=== PATIENT | female | born 1980 | race Caucasian/White ===

== ENCOUNTER 2020-01-19 05:58 | Emergency (ER) | payer OTHER, SELFPAY ==
[2020-01-19 06:05] VITALS: BP 134/91; PULSE 68; RESP 18; TEMP 37.1; O2SAT 98
--- NOTE | 2020-01-19 07:02 | ED.FEMALEGU ---
HPI - Female Genitourinary General Chief complaint: Vaginal Bleeding Stated complaint: worsening period Time Seen by Provider: 01/19/20 06:22 Source: patient Mode of arrival: ambulatory Limitations: no limitations History of Present Illness HPI Narrative: Patient is a 39-year-old female who presents to the emergency department with complaint of vaginal bleeding. Patient has history of PCOS. She reports starting her menstrual period approximately 1 month ago. Her previous menstrual period had been mid November. Patient states her menstrual period in November was very light. She states her menstrual period became much heavier at approximately 9 PM last night and she has been going through a couple of pads an hour. She reports passing clots. Her RADAR TECHNICIAN is in [place]. elicited complaint: vaginal bleeding Pertinent past history: other (PCOS) Onset (ago): week(s) Quality of pain: cramping Vaginal bleeding: heavy Patient : No Related Data Allergies Allergy/AdvReac Type Severity Reaction Status Date / Time No Known Allergies Allergy Verified 01/19/20 06:12 Review of Systems Review of Systems: All systems reviewed & are unremarkable except as noted in HPI and below Genitourinary: Genitourinary: Reports abnormal menses and Reports abnormal vaginal bleeding PMF Past Medical History Medical History (Updated 01/19/20 @ 08:07 by Melisa Alexis MD) Anemia Depression History of migraine headaches IBS (irritable bowel syndrome) PCOS (polycystic ovarian syndrome) Social History Social History (Updated 01/19/20 @ 07:06 by Melisa Alexis MD) Smoking status: Never smoker Exam Const: General: cooperative, no acute distress and alert Nutritional Appearance: overweight Orientation/consciousness: patient oriented x3 Limitations: no limitations HENMT: Mouth: Yes lip normal and Yes moist mucous membranes Resp: Effort & Inspection: normal respiratory effort Auscultation: clear to auscultation bilaterally Cardio: Rate: regular rate Rhythm: regular rhythm GI: GI Palp: Yes Soft to palpation and No Tenderness to palpation present (GI) Auscultation: normal bowel sounds : Speculum Exam - Vagina: vaginal bleeding Speculum Exam - Cervix: normal appearance of the cervix and Cervical os closed Skin: General skin exam: normal color Neuro: General: patient oriented x3 Cognition (Neuro): normal cognition Speech: normal speech Extrem: General: normal to inspection, full ROM and no clubbing, cyanosis or edema Psych: Mental Status: mental status grossly normal Affect: normal affect Attitude: cooperative Course Course Emergency Course: Patient with high normal hemoglobin and normal vital signs. Patient does have modest amount of vaginal bleeding, but stable for further outpatient management at this time does not require any type of emergency intervention. Advised importance of following up with her RADAR TECHNICIAN for further care. Advised to call office today to discuss further management. Vital Signs Vital signs: Vital Signs Temperature 98.8 F 01/19/20 06:05 Pulse Rate 68 01/19/20 06:05 Respiratory Rate 18 01/19/20 06:05 Blood Pressure 134/91 H 01/19/20 06:05 Pulse Oximetry 98 01/19/20 06:05 Temperature 98.8 F 01/19/20 06:05 Pulse Rate 66 01/19/20 07:59 Respiratory Rate 18 01/19/20 07:59 Blood Pressure 162/73 H 01/19/20 07:59 Pulse Oximetry 99 01/19/20 07:59 MDM - Female Genitourinary Lab Data Attestation: I reviewed the patient's lab results. Result diagrams: 01/19/20 07:05 Labs: Lab Results 01/19/20 Range/Units 07:05 WBC 11.1 H (4.5-10.0) K/mm3 RBC 4.76 (4.2-5.4) M/mm3 Hgb 14.0 (12.0-15.0) g/dL Hct 43.5 (37.0-47.0) % MCV 91.4 (80-100) fl MCH 29.4 (26-34) pg MCHC 32.2 (32-36) g/dl RDW 13.0 (11.5-14.5) % Plt Count 343 (150-375) k/mm3 MPV 8.7 (7.4-10.4) fl Immature Gran % (Auto) 0.3 (0-0.5) % Neut
[2020-01-19 07:08] VITALS: BP 121/83; PULSE 63
[2020-01-19 07:10] VITALS: BP 113/77; BP 116/71; PULSE 66; PULSE 70
[2020-01-19 07:11] LABS: Basophils Absolute Auto 0.1 K/mm3 (0.0-0.1); Basophils Percent Auto 0.6 % (0.2-1.2); Eosinophils Absolute Auto 0.4 K/mm3 (0-0.3); Eosinophils Percent Auto 3.2 % (0-4.4); Hematocrit 43.5 % (37.0-47.0); Immature Granulocyte Absolute 0.03 K/mm3 (0.00-0.031); Immature Granulocyte Percent A 0.3 % (0-0.5); Lymphocytes Absolute Auto 4.78 K/mm3 (0.9-3.2); Lymphocytes Percent Auto 43.1 % (18.3-44.2); Mean Corpuscular HGB Conc 32.2 g/dl (32-36); Mean Corpuscular Hemoglobin 29.4 pg (26-34); Mean Corpuscular Volume 91.4 fl (80-100); Mean Platelet Volume 8.7 fl (7.4-10.4); Monocytes Absolute Auto 0.6 K/mm3 (0.1-0.6); Neutrophils Absolute Auto 5.3 K/mm3 (1.3-6.7); Neutrophils Percent Auto 47.8 % (45.5-73.1); Platelet Count Result 343 k/mm3 (150-375); Red Blood Count 4.76 M/mm3 (4.2-5.4); White Blood Count 11.1 K/mm3 (4.5-10.0)
[2020-01-19 07:59] VITALS: BP 162/73; PULSE 66; RESP 18; O2SAT 99
[2020-01-19 08:34] VITALS: BP 126/71
== END 2020-01-19 08:36 | disposition home or self-care (01) ==
PROVIDERS: Emergency Provider Emergency Medicine
DX: N92.1 Excessive and frequent menstruation with irregular cycle (principal); E28.2 Polycystic ovarian syndrome; K58.9 Irritable bowel syndrome, unspecified; Z86.2 Personal history of diseases of the blood and blood-forming organs and certain disorders involving the immune mechanism
CPT/HCPCS: 36415; 81025; 85025; 99283

== ENCOUNTER 2020-06-20 03:04 | Emergency (ER) | payer OTHER, SELFPAY ==
--- NOTE | ~2020-06-20 | CT_ITS ---
EXAMINATION: CTA chest PE protocol DATE: 06/20/2020 08:08 INDICATION: Shortness of breath and back pain TECHNIQUE: Computed tomography angiography (CTA) of the chest was performed with 100 mL Omnipaque-350 intravenous contrast timed to evaluate the pulmonary arteries. Coronal maximum intensity projection 3D-reconstructions were created by the technologist. The dose-length product (DLP) was 504.94 mGy-cm. Automated exposure control and iterative reconstruction technique were employed. COMPARISON: None. FINDINGS: The pulmonary arteries are moderately well-opacified. No pulmonary embolism is identified. There is mild dependent atelectasis. No focal airspace opacities are identified. There is no pleural effusion or pneumothorax. A right-sided aortic arch is noted. IMPRESSION: 1. No pulmonary embolism identified. Reviewed, dictated and finalized at location A.
--- NOTE | ~2020-06-20 | US_ITS ---
EXAMINATION: US pelvic complete w TV DATE: 06/20/2020 06:55 INDICATION: Vaginal bleeding and right flank pain, IUD placement on 06/11/2020 TECHNIQUE: Multiple transabdominal and endovaginal sonographic images of the pelvis were obtained. COMPARISON: 06/20/2020 FINDINGS: The uterus measures 8.6 x 6.1 x 4.3 cm. An IUD is in the uterus in expected position. There is a 1.4 x 0.8 x 0.5 cm hypoechoic area within the endometrial canal in the lower uterine segment. A 1.8 x 1.4 x 1.9 cm hypoechoic mass of the left lower uterus has the appearance of an intramural fibr oid. The endometrial complex measures 13 mm. The right ovary measures 2.6 x 1.5 x 1.8 cm. The left ov guy measures 2.9 x 2.2 x 2.5 cm. There is normal vascular flow in the ovaries. There is no free fluid in the pelvis. IMPRESSION: 1. IUD in expected position. 2. Hypoechoic area within the endometrial canal in the lower uterine segment, possibly small hematoma . Reviewed, dictated and finalized at location A. IMPRESSION: 1. IUD in expected position. 2. Hypoechoic area within the endometrial canal in the lower uterine segment, p ossibly small hematoma.
--- NOTE | ~2020-06-20 | CT_ITS ---
EXAMINATION: CT abdomen pelvis w con INDICATION: Right-sided abdominal pain status post IUD placement TECHNIQUE: Computed tomographic images of the abdomen and pelvis were obtained after the administrati on of 100 cc of Omnipaque 350 intravenous contrast. The dose-length product (DLP) was 1212.42 mGy-cm. Automated exposure control and iterative reconstruction technique were employed. COMPARISON: None available FINDINGS: The lung bases are clear. The heart size is normal. The liver, spleen, pancreas, gallbladde r, and adrenal glands are normal. Hypoattenuating lesions in the kidneys, measuring up to 9 mm on the left, are too small to characterize but likely represent cysts. No pathologically enlarged abdominal or pelvic lymph nodes are identified. The appendix is normal. An IUD is present in the uterus in exp ected position. There is mild lumbar spondylosis at L5-S1. IMPRESSION: 1. No CT correlate for the patient's symptoms. Reviewed, dictated and finalized at location A.
[2020-06-20 03:05] VITALS: BP 132/63; PULSE 109; RESP 16; TEMP 37.3; O2SAT 99
[2020-06-20 04:05] LABS: Basophils Absolute Auto 0.1 K/mm3 (0.0-0.1); Basophils Percent Auto 0.5 % (0.2-1.2); Eosinophils Absolute Auto 0.4 K/mm3 (0-0.3); Eosinophils Percent Auto 2.3 % (0-4.4); Hematocrit 38.8 % (37.0-47.0); Hemoglobin 12.6 g/dL (12.0-15.0); Immature Granulocyte Absolute 0.06 K/mm3 (0.00-0.031); Immature Granulocyte Percent A 0.4 % (0-0.5); Lymphocytes Absolute Auto 3.69 K/mm3 (0.9-3.2); Lymphocytes Percent Auto 22.5 % (18.3-44.2); Mean Corpuscular HGB Conc 32.5 g/dl (32-36); Mean Corpuscular Hemoglobin 29.2 pg (26-34); Mean Corpuscular Volume 89.8 fl (80-100); Mean Platelet Volume 8.3 fl (7.4-10.4); Monocytes Absolute Auto 1.2 K/mm3 (0.1-0.6); Monocytes Percent Auto 7.3 % (2.6-8.5); Platelet Count Result 427 k/mm3 (150-375); Red Blood Count 4.32 M/mm3 (4.2-5.4); Red Cell Distribution Width 12.8 % (11.5-14.5); White Blood Count 16.4 K/mm3 (4.5-10.0)
[2020-06-20] MEDS: SODIUM CHLORIDE 0.9% IV 1,000 ML 999 ML IV CONT (04:11)
[2020-06-20] MEDS: ONDANSETRON INJ 4 MG/2 ML VIAL IV PUSH (04:12)
[2020-06-20] MEDS: MORPHINE SULFATE 4 MG/ML INJ IV PUSH ×2 (04:12→06:13)
[2020-06-20 04:16] LABS: Alanine Aminotransferase 49 U/L (4-35); Albumin Level 4.6 g/dL (3.5-5.1); Alkaline Phosphatase 96 U/L (38-126); Anion Gap 11 mmol/L (8-16); Aspartate Amino Transferase 37 U/L (14-36); Bilirubin,Total 0.2 mg/dL (0.2-1.3); Blood Urea Nitrogen 13 mg/dL (7-17); Calcium 9.1 mg/dL (8.4-10.2); Carbon Dioxide 21 mmol/L (22-30); Chloride 106 mmol/L (98-107); Estimated Glomerular Filt Rate > 60; Glucose 115 mg/dL (65-105); Lipase 79 U/L (23-300); Potassium 3.9 mmol/L (3.4-5.0); Sodium 138 mmol/L (137-145)
[2020-06-20 04:23] LABS: Add Urine Microscopic? YES; Appearance Urine Clear (Clear); Bilirubin Urine Negative (Negative); Blood Urine 3+ (Negative); Color Urine Yellow (Yellow); Glucose Urine UA Negative (Negative); Ketones Urine Negative (Negative); Leukocyte Esterase Ur 2+ LEU/UL (Negative); Mucus Urine Rare /lpf; Nitrate Urine Negative (Negative); Protein Urine 1+ mg/dL (Negative); RBC Urine >75 /hpf (0-2); Specific Grav Ur 1.028 (1.001-1.035); Squamous Epithelial Cell Urine Few /hpf (Few); Urobilinogen Urine Negative mg/dL (<2.0); WBC Urine 16-20 /hpf
--- NOTE | 2020-06-20 05:37 | ED.ABDPAIN ---
HPI - Abdominal Pain General Chief Complaint: Urogenital-Female Stated Complaint: need iud taken out Time Seen by Provider: 06/20/20 03:34 History of Present Illness HPI narrative: Patient is a 39-year-old female who presents the ER with abdominal pain. Right side in the lower abdomen going up into her right upper quadrant and then up into her back. Sharp and worse with any type of movement. No known trauma. Patient recently had an IUD placed on 06/11/2020. She was doing well up until 2 days ago when she developed this pain. She also started having heavier vaginal bleeding where she bleeds through 1-2 pads every couple of hours. No lightheadedness or shortness of breath. Patient would like her IUD removed. Related Data Home Medications Medication Instructions Recorded Confirmed escitalopram oxalate 20 mg PO DAILY 06/20/20 hyoscyamine sulfate 0.375 mg PO BID 06/20/20 metformin 1,000 mg PO HS 06/20/20 omeprazole magnesium [Prilosec OTC] 20 mg PO DAILY 06/20/20 vit [id number] 1 tablet PO DAILY 06/20/20 [ Vitamin] progesterone micronized 200 mg PO DAILY 06/20/20 sumatriptan succinate 100 mg PO DIRECTED 06/20/20 zonisamide 200 mg PO HS 06/20/20 Allergies Allergy/AdvReac Type Severity Reaction Status Date / Time No Known Allergies Allergy Verified 06/20/20 04:14 Review of Systems Review of Systems: All systems reviewed & are unremarkable except as noted in HPI and below Constitutional: Constitutional: Denies chills, Denies fever(s) and Denies weakness Gastrointestinal: Gastrointestinal: Reports abdominal pain, Denies diarrhea, Denies nausea and Denies vomiting Genitourinary: Genitourinary: Reports abnormal vaginal bleeding, Denies nocturia, Denies dysuria and Denies pelvic pain PMF Past Medical History Medical History (Updated 06/20/20 @ 07:36 by Paco Ely MD) Anemia Depression History of migraine headaches IBS (irritable bowel syndrome) PCOS (polycystic ovarian syndrome) Surgical History Surgical History (Updated 06/20/20 @ 05:39 by Paco Ely MD) History of dilation and curettage Social History Social History (Updated 01/19/20 @ 07:06 by Melisa Alexis MD) Smoking status: Never smoker Gender identity (if verbalized by the patient): Female Exam Narrative: Exam Narrative: GENERAL: Well-appearing, obese, and in no acute distress but has a lot of pain with positional movement.. HEAD: Normocephalic, atraumatic. ENT: Mucous membranes moist. CHEST: Clear to auscultation. No respiratory distress. HEART: Regular rate and rhythm. Normal peripheral pulses. ABDOMEN: Soft, tender palpation right lower quadrant but significant tender palpation the right upper quadrant with guarding, nondistended. Pelvic: Closed cervical os (superior 2/3 visualized) with small amount of dark blood within the vaginal vault, no friability. Small amount of mucus-like discharge from the cervix as well. Normal external genitalia. Mild discomfort with speculum insertion. IUD strings not visualized. EXTREMITIES: Normal range of motion. No edema. SKIN: Warm, dry, no rash. NEURO: Alert and oriented x3. Course Course Emergency Course: Patient informed of results. Discussed case with patient's OB Dr. Benitez. She recommends patient be started on clindamycin 300 mg twice daily for 10 days to treat possible endometritis. She also like the patient to receive with TXA 2 pills 3 times daily, and PRN 800 mg ibuprofen. She would like patient follow-up in 1 week but to also contact the office in 2 days for an update on condition. Patient is verbalized understanding of treatment plan. She be discharged home. Vital Signs Vital signs: Vital Signs Temperature 99.2 F 06/20/20 03:05 Pulse Rate 109 H 06/20/20 03:05 Respiratory Rate 16 06/20/20 03:05 Blood Pressure 132/63 06/20/20 03:05 Pulse Oximetry 99 06/20/20 03:05 Temperature 99.2 F 06/20/20 03:05 P
[2020-06-20 06:14] VITALS: BP 121/81; PULSE 100; RESP 17; O2SAT 98
== END 2020-06-20 08:52 | disposition home or self-care (01) ==
PROVIDERS: Emergency Provider Emergency Medicine; PCP Internal Medicine
DX: N80.9 Endometriosis, unspecified (principal); E28.2 Polycystic ovarian syndrome; K58.9 Irritable bowel syndrome, unspecified; Z97.5 Presence of (intrauterine) contraceptive device; F32.9 Major depressive disorder, single episode, unspecified; Z86.2 Personal history of diseases of the blood and blood-forming organs and certain disorders involving the immune mechanism
CPT/HCPCS: 36415; 71275; 74177; 76830; 76856; 80053; 81001; 81025; 83690; 85025; 87070; 87086; 87088; 87491; 87591; 87808; 96361; 96374; 96375; 96376; 99284; J2270; J2405; J7030; Q9967

== ENCOUNTER 2021-08-07 14:40 | Emergency (ER) | payer OTHER, SELFPAY ==
[2021-08-07 15:33] VITALS: BP 135/95; PULSE 92; RESP 16; TEMP 36.5; O2SAT 100
--- NOTE | 2021-08-07 16:18 | PC.NURSE ---
Pt unsure when last Tetanus shot was
--- NOTE | 2021-08-07 16:37 | ED.ANIMALBIT ---
HPI - Animal Bite General Chief Complaint: Animal Bite Stated Complaint: dog bite Time Seen by Provider: 08/07/21 16:23 Source: patient and family Mode of arrival: ambulatory History of Present Illness HPI narrative: 41-year-old with a history of depression, anemia here with complaints of dog bite to her right wrist sustained about 2 hours ago [place] the dog park. As per the mother and by the bystanders there is immunized. complaint: animal bite Onset (ago): hour(s) (2) Animal: dog Description of animal: unknown animal and immunizations UTD Mechanism: bite Location - Extremities: Right: forearm Context: animals fighting Associated symptoms: none Treatments prior to arrival: wound dressing(s) Related Data Patient tetanus UTD: No Home Medications Medication Instructions Recorded Confirmed escitalopram oxalate 20 mg PO DAILY 06/20/20 hyoscyamine sulfate 0.375 mg PO BID 06/20/20 metformin 1,000 mg PO HS 06/20/20 omeprazole magnesium [Prilosec OTC] 20 mg PO DAILY 06/20/20 vit [id number] 1 tablet PO DAILY 06/20/20 [ Vitamin] progesterone micronized 200 mg PO DAILY 06/20/20 sumatriptan succinate 100 mg PO DIRECTED 06/20/20 zonisamide 200 mg PO HS 06/20/20 Allergies Allergy/AdvReac Type Severity Reaction Status Date / Time No Known Allergies Allergy Verified 08/07/21 16:18 Review of Systems Review of Systems: All systems reviewed & are unremarkable except as noted in HPI and below Constitutional: Constitutional: Reports no additional constitutional complaints Eyes: Eyes: Reports no additional eye complaints ENT: Reports system reviewed and no additional complaints, except as documented Cardiovascular: Cardiovascular: Reports no additional cardiovascular complaints Respiratory: Respiratory: Reports no additional respiratory complaints Gastrointestinal: Gastrointestinal: Reports no additional gastrointestinal complaints Musculoskeletal: Musculoskeletal: Reports as per HPI Integumentary/Breasts: Skin/Breast: Reports as per HPI Neurologic: Reports system reviewed and no additional complaints, except as documented Hematologic/Lymphatic: Hematologic/Lymphatic: Reports no additional hematologic/lymphatic complaints PMFSH Past Medical History Medical History Anemia Depression History of migraine headaches IBS (irritable bowel syndrome) PCOS (polycystic ovarian syndrome) Surgical History Surgical History History of dilation and curettage Social History Social History Smoking status: Never smoker Gender identity (if verbalized by the patient): Female Exam Narrative: My normal adult GENERAL: Well-appearing, well-nourished, and in no acute distress. HEAD: Normocephalic, atraumatic. EYES: PERRLA and EOMI. NECK: Supple. CHEST: Clear to auscultation. No respiratory distress. HEART: Regular rate and rhythm. No murmur heard. Normal peripheral pulses.. EXTREMITIES: Normal range of motion. No edema.half cm lac on the right wrist , with no active bleeding SKIN: Warm, dry, no rash. NEURO: No focal deficits. Alert and oriented x3. PSYCH: Normal mood and affect. GENERAL: Well-appearing, well-nourished, and in no acute distress. Course Vital Signs Vital signs: Vital Signs Temperature 36.5 C 08/07/21 15:33 Pulse Rate 92 08/07/21 15:33 Respiratory Rate 16 08/07/21 15:33 Blood Pressure 135/95 H 08/07/21 15:33 Pulse Oximetry 100 08/07/21 15:33 Temperature 36.5 C 08/07/21 15:33 Pulse Rate 92 08/07/21 15:33 Respiratory Rate 16 08/07/21 15:33 Blood Pressure 135/95 H 08/07/21 15:33 Pulse Oximetry 100 08/07/21 15:33 Discharge Plan Discharge Clinical Impression: Dog bite Qualifiers: Encounter type: initial encounter Qualified Code(s): W54.0XXA - Bitten by dog, initial encoun
[2021-08-07] MEDS: TETANUS,DIPHTHERIA,AC PERTUSSIS ADULT (0.5 ML) BOOSTRIX IM (17:21)
[2021-08-07 17:33] VITALS: BP 135/93; PULSE 62; RESP 18; TEMP 36.8; O2SAT 100
== END 2021-08-07 17:45 | disposition home or self-care (01) ==
LOC: ANHED 17:48
PROVIDERS: Emergency Provider Family Medicine
DX: S61.551A Open bite of right wrist, initial encounter (principal); W54.0XXA Bitten by dog, initial encounter; F32.9 Major depressive disorder, single episode, unspecified; D64.9 Anemia, unspecified; Z23 Encounter for immunization
CPT/HCPCS: 90471; 90715; 99283